=== PATIENT | female | born 1930 | race Caucasian/White ===

== ENCOUNTER 2018-02-25 15:24 | Inpatient (IN) | payer MEDICARE, BC ==
--- NOTE | 2018-02-25 15:54 | Emergency Department Record ---
History of Present Illness - General Chief Complaint: Confusion Stated Complaint: CONFUSION Time Seen by Provider: 02/25/18 15:44 Source: Patient Mode of Arrival: Ambulatory Limitations: No limitations - History of Present Illness Initial Comments: 87 yo female presents with her daughter. Over the last two weeks she has been having some episodes of periodic confusion. The daughter reports the patient had a UTI with low sodium in early January that required hospital admission and discharge to rehab. Since DC from rehab she is having some diarrhea, occasional episodes of situational confusion as well. She is not confused at this moment as it will come and go. She forgets that she has children or makes statement that are not remotely related to the context of the situation. No pain. She has chronic gate instability. No falls since discharge. She has had nausea and vomiting today with decreased appetite. No blood in her vomit or diarrhea. PCP is Dr Ann in [place]. -: Unknown Severity: Moderate Consistency: Intermittent Context: History of similar presentation Associated Symptoms: Diarrhea, Nausea/Vomiting - [place]y Coma Scale Eye Response: (4) Open spontaneously Motor Response: (6) Obeys commands Verbal Response: (5) Oriented [place] Total: 15 - Related Data Home Medications Medication Instructions Recorded Confirmed Last Taken Cholecalciferol (Vitamin D3) 1,000 unit PO DAILY 02/25/18 02/25/18 Unknown [Vitamin D3] Duloxetine HCl [Cymbalta] 30 mg PO BID 02/25/18 02/25/18 Unknown Lisinopril [Zestril] 5 mg PO DAILY 02/25/18 02/25/18 Unknown Magnesium 400 mg PO BID 02/25/18 02/25/18 Unknown Rivaroxaban [Xarelto] 20 mg PO DAILY 02/25/18 02/25/18 Unknown Sotalol HCl [Sotalol] 80 mg PO BID 02/25/18 02/25/18 Unknown Allergies Allergy/AdvReac Type Severity Reaction Status Date / Time morphine Allergy Unknown HYPERSENSIT Verified 02/25/18 15:37 IVITY Travel Screening - Travel/Exposure Within Last 30 Days Have you traveled within the last 30 days?: No Review of Systems Constitutional: Reports: Weakness. Denies: Chills, Fever, Malaise Eyes: Denies: Eye discharge, Eye pain, Vision change ENT: Denies: Congestion, Throat pain Respiratory: Denies: Cough Cardiovascular: Denies: Chest pain, Edema, Palpitations, Syncope Endocrine: Reports: Fatigue Gastrointestinal: Reports: Diarrhea, Nausea, Vomiting. Denies: Abdominal pain Genitourinary: Denies: Dysuria Musculoskeletal: Denies: Arthralgia, Back pain, Myalgia Skin: Denies: Bruising, Change in color, Rash Neurological: Reports: As per HPI, Abnormal gait (chronic), Confusion, Vertigo, Weakness. Denies: Headache, Numbness Psychiatric: Denies: Anxiety, Depression Hematological/Lymphatic: Denies: Easy bleeding, Easy bruising Past Medical History - SOCIAL HISTORY Smoking Status: Never smoker Alcohol Use: None Drug Use: None - RESPIRATORY Hx Respiratory Disorders: No - CARDIOVASCULAR Hx Cardio Disorders: Yes Hx Abnormal EKG: Yes Hx Deep Vein Thrombosis: Yes Hx Hypertension: Yes Comment:: tachycardia - NEURO Hx Neuro Disorders: No - GI Hx GI Disorders: No - Hx Genitourinary Disorders: Yes Hx Kidney Stones: Yes Hx UTI: Yes - ENDOCRINE Hx Endocrine Disorders: Yes Hx Thyroid Disease: Yes (hypo) - MUSCULOSKELETAL Hx Musculoskeletal Disorders: Yes Hx Arthritis: Yes - PSYCH Hx Psych Problems: Yes Hx Depression: Yes - HEMATOLOGY/ONCOLOGY Hx Hematology/Oncology Disorders: Yes Hx Blood Transfusions: Yes Family Medical History Any Significant Family History?: No Physical Exam - General General Appearance: Alert, Oriented x3, Cooperative, No acute distress Limitations: No limitations - Head Head exam: Atraumatic, Normocephalic, Normal inspection - Eye Eye exam: Normal appearance, PERRL. negative: Conjunctival injection, Scleral icterus - ENT ENT exam: Normal exam, Mucous membranes moist, Normal orophraynx Ear exam: Normal external inspection Nasal Exam: Normal inspection Mouth exam: Normal external inspection Teeth exam: Normal inspection Throat exam: Normal inspection - Neck Neck exam: Normal inspection, Full ROM. negative: Tenderness - Respiratory Respiratory exam: Normal lung sounds bilaterally. negative: Respiratory distress - Cardiovascular Cardiovascular Exam: Regular rate, Normal rhythm, Normal heart sounds - GI/Abdominal GI/Abdominal exam: Soft. negative: Tenderness - Rectal Rectal exam: Deferred - exam: Deferred - Extremities Extremities exam: Normal inspection, Full ROM, Normal capillary refill. negative: Pedal edema, Tenderness - Back Back exam: Denies: CVA tenderness (R), CVA tenderness (L) - Neurological Neurological exam: Alert, CN II-XII intact, Oriented X3, Other (Mostly intact penitentiary memory, she has some lapses of short term, Mild slowing of the speech) . negative: Altered, Motor sensory deficit - Psychiatric Psychiatric exam: Normal affect, Normal mood. negative: Agitated, Anxious - Skin Skin exam: Dry, Intact, Normal color, Warm Course Vital Signs 02/25/18 15:33 Temperature 97.8 F Pulse Rate 59 L Respiratory 20 Rate Blood Pressure 203/96 Pulse Ox 98 - Reevaluation(s) Reevaluation #1: 02/25/18 17:38 The CBC was reviewed No acute changes The CMP demonstrates a CR of 1.3 The calcium is 14.4 EKG 16:53 sinus colette at 53, intervals normal, ST non specific anterior changes , left axis. No old. 02/25/18 18:04 The patient will be admitted for UTI and Hypercalcemia since she is symptomatic and risk for dehydration with her diarrhea and vomiting. I SHABANA Bravo. Intact PTH and Ionized Calcium ordered Her calcium will be held, gentle IVF hydration and IV antibiotics will be given Medical Decision Making - Lab Data Result diagrams: 02/25/18 16:00 02/25/18 16:00 Disposition Disposition: Admit Clinical Impression: Vomiting, Diarrhea, Hypercalcemia, Urinary tract infection Decision to Admit: Admit from ER Decision to Admit Date: 02/25/18 Decision to Admit Time: 18:02 Condition: (2) Stable Forms: Patient Portal Access Time of Disposition: 18:06 Quality - Quality Measures Quality Measures: N/A - Blood Pressure Screening Does Patient Have Any of the Following: Active Dx of HTN Blood Pressure Classification: Hypertensive Reading Systolic Measurement: 203 Diastolic Measurement: 96 Screening for High Blood Pressure: Patient Exclusion, Hx of HTN [[id number]]
[2018-02-25] MEDS ORDERED: 0.9 % SODIUM CHLORIDE 1000ML 1,000 ML IV ONE ×2 (15:56→17:53)
[2018-02-25 16:15] LABS: BASO % 0.3 % (0-6); EOS % 2.2 % (0-6); GRAN % 70.9 % (47-80); HEMATOCRIT 37.9 % (35.0-47.0); LYMPH % 15.7 % (16-45); MEAN CELL VOLUME 89.6 fl (81-97); MEAN CORPUSCULAR HEMOGLOBIN 28.4 pg (27-33); MEAN CORPUSCULAR HGB CONC 31.7 g/dl (32-36); MONO % 10.9 % (0-9); PLATELET COUNT 243 K/uL (130-400); RED BLOOD COUNT 4.23 M/uL (3.80-5.40); RED CELL DISTRIBUTION WIDTH 16.6 % (11.5-14.5); WHITE BLOOD COUNT W/O DIFF 6.9 K/uL (4.2-12.2)
[2018-02-25 16:21] LABS: URINE APPEARANCE CLOUDY; URINE BILIRUBIN NEGATIVE (NEGATIVE); URINE BLOOD SMALL (NEGATIVE); URINE COLOR YELLOW; URINE GLUCOSE (UA) NEGATIVE (NEGATIVE); URINE KETONE NEGATIVE (NEGATIVE); URINE LEUKOCYTE ESTERASE SMALL (NEGATIVE); URINE NITRITE NEGATIVE (NEGATIVE); URINE PROTEIN NEGATIVE (NEGATIVE); URINE UROBILINOGEN 0.2 E.U./dL (0.20 - 1.00)
[2018-02-25 16:28] LABS: INR 1.2; PROTHROMBIN TIME (PATIENT) 11.9 SECONDS (9.5-12.1)
[2018-02-25 16:30] LABS: BILIRUBIN,TOTAL 0.4 mg/dL (0.2-1.0); CREATININE 1.3 mg/dL (0.5-0.9)
[2018-02-25 16:31] LABS: TOTAL PROTEIN 6.6 g/dL (6.6-8.7)
[2018-02-25 16:32] LABS: URINE AMORPHOUS SEDIMENT 1+; URINE BACTERIA 1+; URINE SQUAMOUS EPITHELIAL CELL 0 - 2 /hpf
[2018-02-25 16:35] LABS: ALB/GLOB RATIO 1.4 (1.1-1.8); ALBUMIN 3.8 g/dL (4.0-5.0)
[2018-02-25 16:46] LABS: THYROID STIMULATING HORMONE 4.71 uIU/mL (0.270-4.20)
[2018-02-25] MEDS ORDERED: CEFTRIAXONE 1GM/50ML BAG 1 GM/50 ML BAG IVPB ONE (17:57)
[2018-02-25] MEDS: 0.9 % SODIUM CHLORIDE 1000ML 1,000 ML IV PRN (19:38)
[2018-02-25] MEDS ORDERED: PNEUM 13-VAL/PF 0.5 ML IM ONE (19:42)
[2018-02-25] MEDS: DULOXETINE HCL 30 MG CAPSULE.DR PO SCH (22:02)
[2018-02-25] MEDS: SOTALOL HCL 80 MG TABLET PO SCH (22:02)
[2018-02-25] MEDS: MAGNESIUM OXIDE 400 MG TABLET PO SCH (22:02)
[2018-02-26] MEDS: 0.9 % SODIUM CHLORIDE 1000ML 1,000 ML IV PRN ×2 (03:48→12:14)
[2018-02-26] MEDS: LEVOTHYROXINE SODIUM 88 MCG TABLET PO SCH (06:10)
[2018-02-26 06:48] LABS: CREATININE 1.2 mg/dL (0.5-0.9)
[2018-02-26] MEDS: ATORVASTATIN 20 MG TABLET PO SCH (09:42)
[2018-02-26] MEDS: DOXAZOSIN MESYLATE 2 MG TABLET PO SCH (09:42)
[2018-02-26] MEDS: SOTALOL HCL 80 MG TABLET PO SCH ×2 (09:42→21:18)
[2018-02-26] MEDS: DULOXETINE HCL 30 MG CAPSULE.DR PO SCH ×2 (09:42→21:18)
[2018-02-26] MEDS: MAGNESIUM OXIDE 400 MG TABLET PO SCH ×2 (09:42→21:18)
[2018-02-26] MEDS: RIVAROXABAN 20 MG TABLET PO SCH (09:42)
[2018-02-26] MEDS: LISINOPRIL 5 MG TABLET PO SCH (09:42)
--- NOTE | 2018-02-26 10:10 | History & Physical ---
History of Present Illness - Date of Service Date of Service for History & Physical: 02/26/18 - History of Present Illness Admitting Diagnosis: hypercalcemia, uti,confusion,weakness, vomiting, diarrhea History of Present Illness: Mrs. Hernandez is a 87 y/o female with complaint of confusion and diarrhea for the past 2-3 weeks. The patient's daughter says her mom has become increasing forgetful and within the past few days more confused. She says that she has not been answering questions appropriately and has had a series of falls at home within recent weeks. The patient's daughter reports that her mother has several loose bowel movements daily and has become much weaker as a result. She states that her mother doesn't eat very much and has coffee and toast for breakfast and very little throughout the day. The patient denies having any fevers or chills and has not had any urinary complaints. On presentation to the ED the patient was noted to be somewhat confused but a baseline of cognitive function was not established. The patient's initial workup revealed a urinary tract infection, hypercalcemia and hypokalemia. The patient is admitted for UTI , altered mental status and weakness. PCP: Dr. Ann Travel Screening - Travel/Exposure Within Last 30 Days Have you traveled within the last 30 days?: No - Travel/Exposure Within Last Year Have you traveled outside the [place] in the last year?: No - Additonal Travel Details Have you been exposed to anyone with a communicable illness?: No - Travel Symptoms Symptom Screening: None Review of Systems Constitutional: Reports: Weakness. Denies: Chills, Fever, Malaise Eyes: Denies: Eye discharge, Eye pain, Vision change ENT: Denies: Congestion, Throat pain Respiratory: Denies: Cough Cardiovascular: Denies: Chest pain, Edema, Palpitations, Syncope Endocrine: Reports: Fatigue Gastrointestinal: Reports: Diarrhea, Nausea, Vomiting. Denies: Abdominal pain Genitourinary: Denies: Dysuria Musculoskeletal: Denies: Arthralgia, Back pain, Myalgia Skin: Denies: Bruising, Change in color, Rash Neurological: Reports: As per HPI, Abnormal gait (chronic), Confusion, Vertigo, Weakness. Denies: Headache, Numbness Psychiatric: Denies: Anxiety, Depression Hematological/Lymphatic: Denies: Easy bleeding, Easy bruising Past Medical History - SOCIAL HISTORY Smoking Status: Never smoker Alcohol Use: None Drug Use: None - RESPIRATORY Hx Respiratory Disorders: No - CARDIOVASCULAR Hx Cardio Disorders: Yes Hx Abnormal EKG: Yes Hx Cardiac Cath: Yes Hx Deep Vein Thrombosis: Yes Hx Hypertension: Yes Hx Irregular Heartbeat: Yes Comment:: tachycardia - NEURO Hx Neuro Disorders: No - GI Hx GI Disorders: No - Hx Genitourinary Disorders: Yes Hx Kidney Stones: Yes Hx UTI: Yes - ENDOCRINE Hx Endocrine Disorders: Yes Hx Thyroid Disease: Yes (hypo) - MUSCULOSKELETAL Hx Musculoskeletal Disorders: Yes Hx Arthritis: Yes - PSYCH Hx Psych Problems: Yes Hx Depression: Yes - HEMATOLOGY/ONCOLOGY Hx Hematology/Oncology Disorders: Yes Hx Blood Transfusions: Yes Family Medical History Any Significant Family History?: No H&P Meds/Allergies - Allergies Allergies: Allergies Allergy/AdvReac Type Severity Reaction Status Date / Time morphine Allergy Unknown HYPERSENSIT Verified 02/25/18 15:37 IVITY - Home Medications Home Medications Medication Instructions Recorded Confirmed Last Taken Cholecalciferol (Vitamin D3) 1,000 unit PO DAILY 02/25/18 02/25/18 Unknown [Vitamin D3] Duloxetine HCl [Cymbalta] 30 mg PO BID 02/25/18 02/25/18 Unknown Lisinopril [Zestril] 5 mg PO DAILY 02/25/18 02/25/18 Unknown Magnesium 400 mg PO BID 02/25/18 02/25/18 Unknown Rivaroxaban [Xarelto] 20 mg PO DAILY 02/25/18 02/25/18 Unknown Sotalol HCl [Sotalol] 80 mg PO BID 02/25/18 02/25/18 Unknown - Active Medications Active Medications: Current Medications Atorvastatin Calcium (Lipitor) 80 mg PO DAILY [facility] Last Admin: 02/26/18 09:42 Dose: 80 mg Doxazosin Mesylate (Cardura) 4 mg PO DAILY [facility] Last Admin: 02/26/18 09:42 Dose: 4 mg Duloxetine HCl (Cymbalta) 30 mg PO BID [facility] Last Admin: 02/26/18 09:42 Dose: 30 mg Sodium Chloride () 1,000 mls @ 125 mls/hr IV .Q8H PRN PRN Reason: LARGE VOLUME IV Last Admin: 02/26/18 03:48 Dose: 125 mls/hr Levothyroxine Sodium (Synthroid) 88 mcg PO DAILYTHY [facility] Last Admin: 02/26/18 06:10 Dose: 88 mcg Lisinopril (Zestril) 5 mg PO DAILY [facility] Last Admin: 02/26/18 09:42 Dose: 5 mg Magnesium Oxide (Mag Ox) 400 mg PO BID [facility] Last Admin: 02/26/18 09:42 Dose: 400 mg Rivaroxaban (Xarelto) 20 mg PO DAILY [facility] Last Admin: 02/26/18 09:42 Dose: 20 mg Sotalol HCl (Betapace) 80 mg PO BID [facility] Last Admin: 02/26/18 09:42 Dose: 80 mg Physical Exam - Vital Signs Vital Signs: Vital Signs - Last 24 Hrs Temp Pulse Pulse Resp BP BP Pulse Ox 02/26/18 03:00 98.6 F 60 16 146/77 95 02/25/18 20:25 51 L 18 02/25/18 19:13 96.8 F L 51 L 18 192/84 94 L 02/25/18 18:47 52 L 20 182/91 97 02/25/18 17:40 59 L 18 166/78 99 02/25/18 15:33 97.8 F 59 L 20 203/96 98 - General General Appearance: Alert, Oriented x3, Cooperative, No acute distress Limitations: No limitations - Head Head exam: Atraumatic, Normocephalic, Normal inspection - Eye Eye exam: Normal appearance, PERRL. negative: Conjunctival injection, Scleral icterus - ENT ENT exam: Normal exam, Mucous membranes moist, Normal orophraynx Ear exam: Normal external inspection Nasal Exam: Normal inspection Mouth exam: Normal external inspection Teeth exam: Normal inspection Throat exam: Normal inspection - Neck Neck exam: Normal inspection, Full ROM. negative: Tenderness - Respiratory Respiratory exam: Normal lung sounds bilaterally. negative: Respiratory distress - Cardiovascular Cardiovascular Exam: Regular rate, Normal rhythm, Normal heart sounds Peripheral Pulses: 3+: Radial (R), Radial (L), Dorsalis Pedis (R), Dorsalis Pedis (L) - GI/Abdominal GI/Abdominal exam: Soft. negative: Tenderness - Rectal Rectal exam: Deferred - exam: Deferred - Extremities Extremities exam: Normal inspection, Full ROM, Normal capillary refill. negative: Pedal edema, Tenderness - Back Back exam: Denies: CVA tenderness (R), CVA tenderness (L) - Neurological Neurological exam: Alert, CN II-XII intact, Oriented X3, Other (Mostly intact detention memory, she has some lapses of short term, Mild slowing of the speech) . negative: Altered, Motor sensory deficit - Psychiatric Psychiatric exam: Normal affect, Normal mood. negative: Agitated, Anxious - Skin Skin exam: Dry, Intact, Normal color, Warm Results - Labs Result Diagrams: 02/25/18 16:00 02/26/18 06:27 Labs Last 24 Hours: Laboratory Results - last 24 hr 02/25/18 02/25/18 02/25/18 16:00 16:00 16:00 WBC 6.9 RBC 4.23 Hgb 12.0 Hct 37.9 MCV 89.6 MCH 28.4 MCHC 31.7 L RDW 16.6 H Plt Count 243 MPV 11.0 H Gran % 70.9 Lymphocytes % 15.7 L Monocytes % 10.9 H Eosinophils % 2.2 Basophils % 0.3 PT 11.9 INR 1.2 APTT 28.0 Sodium 143 Potassium 3.4 Chloride 103 Carbon Dioxide 30.0 H Anion Gap 10.0 BUN 21 Creatinine 1.3 H Estimated GFR 41 Random Glucose 115 H Calcium 14.4 H* Magnesium 2.1 Total Bilirubin 0.40 AST 40 H ALT 28 Alkaline Phosphatase 182 H Total Protein 6.6 Albumin 3.8 L Globulin 2.8 Albumin/Globulin Ratio 1.4 TSH 4.71 H Urine Color Urine Appearance Urine pH Ur Specific [place]iley Urine Protein Urine Glucose (UA) Urine Ketones Urine Blood Urine Nitrite Urine Bilirubin Urine Urobilinogen Ur Leukocyte Esterase Urine RBC Urine WBC U Non-Squamous Epi Cells Amorphous Sediment Urine Bacteria 02/25/18 02/26/18 16:10 06:27 WBC RBC Hgb Hct MCV MCH MCHC RDW Plt Count MPV Gran % Lymphocytes % Monocytes % Eosinophils % Basophils % PT INR APTT Sodium 146 H Potassium 3.2 L Chloride 110 H Carbon Dioxide 25.0 Anion Gap 11.0 BUN 17 Creatinine 1.2 H Estimated GFR 45 Random Glucose 89 Calcium 12.6 H Magnesium Total Bilirubin AST ALT Alkaline Phosphatase Total Protein Albumin Globulin Albumin/Globulin Ratio TSH Urine Color Yellow Urine Appearance Cloudy Urine pH 7.5 Ur Specific [place]iley 1.015 Urine Protein Negative Urine Glucose (UA) Negative Urine Ketones Negative Urine Blood Small H Urine Nitrite Negative Urine Bilirubin Negative Urine Urobilinogen 0.2 Ur Leukocyte Esterase Small H Urine RBC 3 - 6 Urine WBC 3 - 5 U Non-Squamous Epi Cells 0 - 2 Amorphous Sediment 1+ Urine Bacteria 1+ VTE H&P Assessment - Risk for VTE Risk for VTE: Yes Risk Level: Moderate Risk Assessment Date: 02/26/18 Risk Assessment Time: 10:11 VTE Orders Placed or Will Be Placed: Yes Plan - Inpatient Certification Inpatient Certification: Admit to inpatient care: Based on my medical assessment, after consideration of patient's risk factors (age, co-morbidities and patient presenting symptoms and acuity), I expect that this patient will remain in the hospital greater than or equal to two midnights and that the services needed warrant inpatient care because: Patient Risk Factors: AMS, UTI Estimated length of stay: 48hours The patient may reasonably be expected to be discharged or transferred to a hospital within 96 hours after admission to [facility]. I certify that my determination is in accordance with my understanding of Medicare requirements for reasonable and necessary inpatient services. 02/26/18 18:09 - Detailed Diagnosis and Plan (1) Altered mental state Current Visit: Yes Status: Acute Base Code: R41.82 - ALTERED MENTAL STATUS, UNSPECIFIED Comment: 02/26/18: - Resolved. - Confused state likely due to infection, dehydration, hypercalcemia. - Continue with IVF hydration and IV antibiotics. (2) Urinary tract infection Current Visit: Yes Status: Acute Base Code: N39.0 - URINARY TRACT INFECTION , SITE NOT SPECIFIED Comment: 02/26/18: - UA: small leukocytes +, negative nitrates - Rocephin 1gm Q24H - UCX pending (3) Hypercalcemia Current Visit: Yes Status: Acute Base Code: E83.52 - HYPERCALCEMIA Comment : 02/26/18: - clincally: confusion, dehydration, fatigue - 14.4 --> 12.6 after hydration. - DDx: Dehydration, Calcium overuse (pt takes Ca supplements), Primary Hyperparathyroidism or Malignancy. - Trend Ca levels - Continue with IV fluid @ 125mL/hr (4) Cognitive deficits Current Visit: Yes Status: Acute Base Code: R41.89 - OTH SYMPTOMS AND SIGNS W COGNITIVE FUNCTIONS AND AWARENESS Comment: 02/26/18: - Mini-mental examination reveals mild-moderate cognitive deficits. - Current change in mental status may be multi-factorial: hypercalcemia, infection. - Further outpatient assessment and management recommended. (5) HTN (hypertension) Current Visit: Yes Status: Acute Base Code: I10 - ESSENTIAL (PRIMARY) HYPERTENSION Comment: 02/26/18: - Resume Cardura 4mg and Lisinopril 5mg daily. (6) Afib Current Visit: Yes Status: Acute Base Code: I48.91 - UNSPECIFIED ATRIAL FIBRILLATION Comment: 02/26/18: - Resume Sotalol 80mg BID and anticoagulation with Xarelto 20mg daily. - Risk vs benefit of anticoagulation considering recent falls discussed with daughter. (7) Hypothyroid Current Visit: Yes Status: Acute Base Code: E03.9 - HYPOTHYROIDISM, UNSPECIFIED Comment: 02/26/18: - Resume Levothyroxine 88mcg daily. (8) DVT (deep venous thrombosis) Current Visit: Yes Status: Acute Base Code: I82.409 - ACUTE EMBOLISM AND THOMBOS UNSP DEEP VN UNSP LOWER EXTREMITY Comment: 02/26/18: - Pt on therapeutic doses of Xarelto due to high [id number]. (9) Full code status Current Visit: Yes Status: Acute Base Code: Z78.9 - OTHER SPECIFIED HEALTH STATUS Comment: 02/26/18: - Full code status.
[2018-02-27] MEDS: LEVOTHYROXINE SODIUM 88 MCG TABLET PO SCH (06:37)
[2018-02-27 08:02] LABS: ALB/GLOB RATIO 1.1 (1.1-1.8); BILIRUBIN,TOTAL 0.5 mg/dL (0.2-1.0); CREATININE 1.2 mg/dL (0.5-0.9); TOTAL PROTEIN 5.7 g/dL (6.6-8.7)
[2018-02-27] MEDS ORDERED: SOD CHLOR 0.9% WITH KCL 40MEQ 40 MEQ/1,000 ML IV.SOLN IV ONE (08:37)
[2018-02-27] MEDS: LISINOPRIL 5 MG TABLET PO SCH (09:48)
[2018-02-27] MEDS: ATORVASTATIN 20 MG TABLET PO SCH (09:48)
[2018-02-27] MEDS: DULOXETINE HCL 30 MG CAPSULE.DR PO SCH (09:48)
[2018-02-27] MEDS: RIVAROXABAN 20 MG TABLET PO SCH (09:48)
[2018-02-27] MEDS: DOXAZOSIN MESYLATE 2 MG TABLET PO SCH (09:49)
[2018-02-27] MEDS ORDERED: POTASSIUM CHLORIDE 20 MEQ TABLET PO ONE (09:49)
[2018-02-27] MEDS: MAGNESIUM OXIDE 400 MG TABLET PO SCH (09:49)
[2018-02-27] MEDS: SOTALOL HCL 80 MG TABLET PO SCH (09:49)
--- NOTE | 2018-02-27 10:00 | Discharge Summary ---
Providers Discharge Summary Date: 02/27/18 Date of admission: 02/25/18 18:53 Attending physician: EVELINA LAUREN Primary care physician: BLAZE ANN Physical Exam - Vital Signs Vital Signs: Vital Signs - Last 24 Hrs Temp Pulse Resp BP Pulse Ox 02/27/18 09:46 97.6 F 99 H 20 148/62 100 02/27/18 07:44 17 02/27/18 04:00 98.4 F 54 L 17 153/78 94 L 02/26/18 21:00 16 02/26/18 20:00 97.5 F L 57 L 16 169/81 94 L 02/26/18 11:00 96.8 F L 86 18 142/62 98 - General General Appearance: Alert, Oriented x3, Cooperative, No acute distress Limitations: No limitations - Head Head exam: Atraumatic, Normocephalic, Normal inspection - Eye Eye exam: Normal appearance, PERRL. negative: Conjunctival injection, Scleral icterus - ENT ENT exam: Normal exam, Mucous membranes moist, Normal orophraynx Ear exam: Normal external inspection Nasal Exam: Normal inspection Mouth exam: Normal external inspection Teeth exam: Normal inspection Throat exam: Normal inspection - Neck Neck exam: Normal inspection, Full ROM. negative: Tenderness - Respiratory Respiratory exam: Normal lung sounds bilaterally. negative: Respiratory distress - Cardiovascular Cardiovascular Exam: Regular rate, Normal rhythm, Normal heart sounds Peripheral Pulses: 3+: Radial (R), Radial (L), Dorsalis Pedis (R), Dorsalis Pedis (L) - GI/Abdominal GI/Abdominal exam: Soft. negative: Tenderness - Rectal Rectal exam: Deferred - exam: Deferred - Extremities Extremities exam: Normal inspection, Full ROM, Normal capillary refill. negative: Pedal edema, Tenderness - Back Back exam: Denies: CVA tenderness (R), CVA tenderness (L) - Neurological Neurological exam: Alert, CN II-XII intact, Oriented X3, Other (Mostly intact watermelon inspector memory, she has some lapses of short term, Mild slowing of the speech) . negative: Altered, Motor sensory deficit - Psychiatric Psychiatric exam: Normal affect, Normal mood. negative: Agitated, Anxious - Skin Skin exam: Dry, Intact, Normal color, Warm Hospitalization - Hospitalization Admission Diagnosis: hypercalcemia, uti,confusion,weakness, vomiting, diarrhea - Problem List/Discharge Diagnosis (1) Hypokalemia Current Visit: Yes Status: Acute Base Code: E87.6 - HYPOKALEMIA Comment: 02/27/18: - hypokalemia 3.2 --> 3.0 - replete with 40meq IV and 40meq PO - repeat K in 6 hours. (2) Altered mental state Current Visit: Yes Status: Acute Base Code: R41.82 - ALTERED MENTAL STATUS, UNSPECIFIED Comment: 02/26/18: - Resolved. - Confused state likely due to infection, dehydration, hypercalcemia. - Continue with IVF hydration and IV antibiotics. (3) Urinary tract infection Current Visit: Yes Status: Acute Base Code: N39.0 - URINARY TRACT INFECTION , SITE NOT SPECIFIED Comment: 02/27/18: - UA: small leukocytes +, negative nitrates - Rocephin 1gm Q24H, change to PO medications - UCX pending (4) Hypercalcemia Current Visit: Yes Status: Acute Base Code: E83.52 - HYPERCALCEMIA Comment : 02/27/18: - clincally: confusion, dehydration, fatigue - 14.4 --> 12.6-->11.9 after hydration. - DDx: Dehydration, Calcium overuse (pt takes Ca supplements), Primary Hyperparathyroidism or Malignancy. - Intact PTH 10.5, ionized calcium 1.86 but pt has been consuming high amounts of Ca supplemenets. Follow up with outpatient would be appropriate. - Continue with IV fluid @ 125mL/hr (5) Cognitive deficits Current Visit: Yes Status: Acute Base Code: R41.89 - OTH SYMPTOMS AND SIGNS W COGNITIVE FUNCTIONS AND AWARENESS Comment: 02/27/18: - Mini-mental examination reveals mild-moderate cognitive deficits. - Current change in mental status may be multi-factorial: hypercalcemia, infection. - Further outpatient assessment and management recommended. (6) HTN (hypertension) Current Visit: Yes Status: Acute Base Code: I10 - ESSENTIAL (PRIMARY) HYPERTENSION Comment: 02/27/18: - Resume Cardura 4mg and Lisinopril 5mg daily. (7) Afib Current Visit: Yes Status: Acute Base Code: I48.91 - UNSPECIFIED ATRIAL FIBRILLATION Comment: 02/27/18: - Resume Sotalol 80mg BID and anticoagulation with Xarelto 20mg daily. - Risk vs benefit of anticoagulation considering recent falls discussed with daughter. (8) Hypothyroid Current Visit: Yes Status: Acute Base Code: E03.9 - HYPOTHYROIDISM, UNSPECIFIED Comment: 02/27/18: - Resume Levothyroxine 88mcg daily. (9) DVT (deep venous thrombosis) Current Visit: Yes Status: Acute Base Code: I82.409 - ACUTE EMBOLISM AND THOMBOS UNSP DEEP VN UNSP LOWER EXTREMITY Comment: 02/27/18: - Pt on therapeutic doses of Xarelto due to high [id number]. (10) Full code status Current Visit: Yes Status: Acute Base Code: Z78.9 - OTHER SPECIFIED HEALTH STATUS Comment: 02/27/18: - Full code status. - Hospitalization Course Hospital Course: Mrs. Hernandez is a 87 y/o female with complaint of confusion and diarrhea for the past 2-3 weeks. The patient's daughter says her mom has become increasing forgetful and within the past few days more confused. She says that she has not been answering questions appropriately and has had a series of falls at home within recent weeks. The patient's daughter reports that her mother has several loose bowel movements daily and has become much weaker as a result. She states that her mother doesn't eat very much and has coffee and toast for breakfast and very little throughout the day. The patient denies having any fevers or chills and has not had any urinary complaints. On presentation to the ED the patient was noted to be somewhat confused but a baseline of cognitive function was not established. The patient's initial workup revealed a urinary tract infection, hypercalcemia and hypokalemia. The patient is admitted for UTI , altered mental status and weakness. 02/27: The patient is resting comfortably. There was nursing report of confusion last night with some delusional thoughts by the patient. Repeat labs this morning show show a decrease in calcium to 11.9m ionized Ca 1.8 and intact PTH 10.5. She is hemodynamically stable and appears to be back to her baseline mentation. PCP: Dr. Ann Procedures: Imaging and X-Rays 02/25/18 15:54 HEAD WO CONTRAST [CT] Stat Cardiology Procedures 02/25/18 16:59 EKG ONCE Abnormal Labs: Abnormal Lab Results 02/25/18 02/25/18 02/25/18 Range/Units 16:00 16:00 16:10 MCHC 31.7 L (32-36) g/dl RDW 16.6 H (11.5-14.5) % MPV 11.0 H (7.4-10.4) fl Lymphocytes % 15.7 L (16-45) % Monocytes % 10.9 H (0-9) % Sodium (136-145) mmol/L Potassium (3.4-4.5) mmol/L Chloride (98-107) mmol/L Carbon Dioxide 30.0 H (22-29) mmol/L Creatinine 1.3 H (0.5-0.9) mg/dL Random Glucose 115 H (74-109) mg/dL Calcium 14.4 H* (8.8-10.2) mg/dL AST 40 H (10.0-35.0) U/L Alkaline Phosphatase 182 H (35-104) U/L Total Protein (6.6-8.7) g/dL Albumin 3.8 L (4.0-5.0) g/dL TSH 4.71 H (0.270-4.20) uIU/mL Urine Blood Small H (NEGATIVE) Ur Leukocyte Esterase Small H (NEGATIVE) 18 02/27/18 Range/Units 06:27 06:00 MCHC (32-36) g/dl RDW (11.5-14.5) % MPV (7.4-10.4) fl Lymphocytes % (16-45) % Monocytes % (0-9) % Sodium 146 H (136-145) mmol/L Potassium 3.2 L 3.0 L (3.4-4.5) mmol/L Chloride 110 H 109 H (98-107) mmol/L Carbon Dioxide (22-29) mmol/L Creatinine 1.2 H 1.2 H (0.5-0.9) mg/dL Random Glucose (74-109) mg/dL Calcium 12.6 H 11.9 H (8.8-10.2) mg/dL AST 39 H (10.0-35.0) U/L Alkaline Phosphatase 158 H (35-104) U/L Total Protein 5.7 L (6.6-8.7) g/dL Albumin 3.0 L (4.0-5.0) g/dL TSH (0.270-4.20) uIU/mL Urine Blood (NEGATIVE) Ur Leukocyte Esterase (NEGATIVE) Condition at Discharge: (2) Stable Discharge Medications - Discharge Medications Prescriptions: Cefdinir [Omnicef] 300 mg PO BID 6 Days #12 cap Home Medications: Ambulatory Orders Doxazosin Mesylate 4 mg PO DAILY 09/02/14 [Last Taken Unknown] Levothyroxine Sodium [Synthroid] 80 mcg PO DAILY 09/02/14 [Last Taken Unknown] Multivitamin [Multi-Vitamin Daily] 1 each PO DAILY 09/02/14 [Last Taken Unknown] Rosuvastatin Calcium [Crestor] 20 mg PO DAILY 09/02/14 [Last Taken Unknown] Cholecalciferol (Vitamin D3) [Vitamin D3] 1,000 unit PO DAILY 02/25/18 [Last Taken Unknown] Duloxetine HCl [Cymbalta] 30 mg PO BID 02/25/18 [Last Taken Unknown] Lisinopril [Zestril] 5 mg PO DAILY 02/25/18 [Last Taken Unknown] Magnesium 400 mg PO BID 02/25/18 [Last Taken Unknown] Rivaroxaban [Xarelto] 20 mg PO DAILY 02/25/18 [Last Taken Unknown] Sotalol HCl [Sotalol] 80 mg PO BID 02/25/18 [Last Taken Unknown] Cefdinir [Omnicef] 300 mg PO BID 6 Days #12 cap 02/27/18 [Last Taken Unknown] Discharge Plan - Discharge Instructions Diet at Discharge: Regular Diet, Low Salt Diet Additional Instructions: Please follow up with your PCP within 5-7 days for further workup and monitoring of your calcium levels. Stop taking Calcium tablets and drink plenty of water over the next few days. New medication: Omnicef 300mg twice daily x 6 days for your UTI. Quality Measures - Quality Measures Quality Measures: Atrial Fibrillation & Atrial Flutter: Chronic Anticoagulation Therapy, Advance Directives, Documentation of Current Medications in Medical Record, Elder Maltreatment Screen and Follow-Up Plan, Screening for High Blood Pressure and F/U Documented - Current Medications Quality Measure: Measure #130: Documentation of Current Medications Documentation of Current Medications: <Current Medications Documented/Reviewed> [G8427] - Blood Pressure Screening Quality Measure: Screening for High Blood Pressure and Follow-Up Documented Does Patient Have Any of the Following: Active Dx of HTN Blood Pressure Classification: Hypertensive Reading Systolic Measurement: 182 Diastolic Measurement: 91 Screening for High Blood Pressure: Patient Exclusion, Hx of HTN [G9744] - Atrial Fibrillation and Atrial Flutter Quality Measure: Atrial Fibrillation & Atrial Flutter: Chronic Anticoagulation Therapy Does Patient Have Any of the Following: No CHADS2 Risk Stratification: Age 75 or Greater, Hypertension Risk Stratification Summary: One or more high risk factors OR more than one moderate risk factor exists. [G8972] Anticoagulation Therapy: <Oral anticoagulant Prescribed> [D8984] - Advance Directives Quality Measure: Measure #47: Care Plan Advance Directives Established: Yes Advance Directives Information Provided To Patient: Declined Advance Directives on File: No Living Will: Yes Power of Comfort Station Supervisor: Yes Advance Care Planning: <Care Plan/Decision Maker Not Decided; Discussed & Documented> [[id number]] - Elder Abuse Suspicion Index Screening: Elder Abuse Suspicion Index Screening Rely on people for bathing, dressing, shopping, banking, etc: Yes Prevented from getting food, clothes, medication, etc: No Made to feel shamed or threatened by someone: No Forced to sign papers or use money against will: No Feel afraid, touched in ways not wanted or hurt physically: No Poor eye contact, withdrawn, malnourished, cuts or bruises: No Screening Result: Negative result EASI Reference Information: Alf CHIRINOS, Mark C, Jackson D, Pam Rai.Development and validation of a tool to assist physicians identification of elder abuse: The Elder Abuse Suspicion Index (EASI ). Journal of Elder Abuse and Neglect, 2008; 20 (3): 276-300. - Elder Maltreatment Screen Quality Measures: Elder Maltreatment Screen and Follow-Up Plan Elder Maltreatment Screen: <Negative, No Follow-Up Plan Required> [G8761]
[2018-02-27] MEDS ORDERED: LISINOPRIL 10 MG TABLET PO ONE (10:47)
[2018-02-27] MEDS ORDERED: CEFDINIR 300 MG CAPSULE PO ONE (16:00)
--- NOTE | 2018-02-28 10:20 | CT SCAN REPORT ---
EXAM: CT SCAN HEAD WO CONTRAST HISTORY: PATIENT HAS CONFUSION AND DIARRHEA. TECHNIQUE: Serial axial CT scan of the head was performed at 2.5 mm intervals from the base of the skull to the apex without the use of intravenous contrast. COMPARISON: No comparison CT's are available. FINDINGS: Moderate generalized parenchymal volume loss is noted. There is no mass or mass effect. There is moderate, symmetric periventricular and subcortical white matter decreased attenuation within the bilateral frontal lobes. This finding suggests chronic ischemic changes. There is no CT evidence of intra or extraaxial fluid collection to suggest bleeding. Bone windows demonstrate no CT evidence of a fracture or dislocation of the skull. Paranasal sinuses are unremarkable. IMPRESSION: FINDINGS SUGGESTIVE OF SYMMETRIC CHRONIC SMALL VESSEL ISCHEMIC CHANGES WITHIN THE BILATERAL FRONTAL LOBES. THERE IS NO CT EVIDENCE OF AN ACUTE INTRACRANIAL PROCESS. IF THERE IS FURTHER CLINICAL CONCERN, THEN MRI OF THE BRAIN CAN BE OBTAINED FOR FURTHER EVALUATION. JOB NUMBER: [id number] MTDD
== END 2018-02-27 16:46 | disposition home or self-care (01) | DRG 690 ==
LOC: ER 15:24 → MEDSURG 18:53
PROVIDERS: ADMIT Internal Medicine; ATTEND Internal Medicine
DX: N39.0 Urinary tract infection, site not specified (principal); E83.52 Hypercalcemia; R41.89 Other symptoms and signs involving cognitive functions and awareness; I10 Essential (primary) hypertension; I48.91 Unspecified atrial fibrillation; E03.9 Hypothyroidism, unspecified; Z78.9 Other specified health status; Z86.718 Personal history of other venous thrombosis and embolism; Z79.01 Long term (current) use of anticoagulants
CPT/HCPCS: 99285 ×2; 96365; 83735; 85025; 85730; 85610; 80053; 81001; 84443; 70450; 93005; 93010; J0696; 80048; 84132; 99223; 99239; J7030